=== PATIENT | female | born 1965 | race Caucasian/White ===

== ENCOUNTER 2024-11-03 09:42 | Emergency (ER) | payer MEDICARE ==
[~2024-11-03] VITALS: Ht 165.1 cm; Wt 72.6 kg
[2024-11-03] MEDS: LACTATED RINGERS 1000ML 1,000 ML IV ONE (10:07)
[2024-11-03] MEDS: ondanSETRON 4MG INJ IVP ONE (10:07)
[2024-11-03] MEDS: PANTOPrazole 40 MG/VIAL IVP ONE (10:07)
[2024-11-03 10:31] LABS: BASOPHILS # (AUTO) 0.05 K/uL (0.00-0.20); BASOPHILS % (AUTO) 1.5 % (0.0-5.0); EOSINOPHILS % (AUTO) 5.9 % (0.0-8.0); HEMATOCRIT 41.2 % (36-48); IMMATURE GRANULOCYTE ABSOLUTE 0.01 K/uL (0-1); LYMPHOCYTES # (AUTO) 0.5 K/uL (1.0-4.8); LYMPHOCYTES % (AUTO) 13.3 % (21.0-51.0); MEAN CORPUSCULAR HEMOGLOBIN 32.1 pg (27.0-33.0); MEAN CORPUSCULAR HGB CONC 34.2 g/dL (32.0-36.0); MEAN CORPUSCULAR VOLUME 93.8 fL (79-99); MONOCYTES # (AUTO) 0.4 K/uL (0.1-1.0); MONOCYTES % (AUTO) 10.3 % (3.0-13.0); NEUTROPHILS # (AUTO) 2.3 K/uL (1.8-7.7); NEUTROPHILS % (AUTO) 68.7 % (40.0-77.0); PLATELET COUNT (AUTO) 185 K/uL (130-400); RED BLOOD CELL COUNT(AUTO) 4.39 MIL/uL (4.00-5.50); RED CELL DISTRIBUTION WIDTH 12.1 % (11.0-15.5); WHITE BLOOD COUNT (AUTO) 3.4 K/uL (4.8-10.8)
[2024-11-03 10:36] LABS: APPEARANCE,URINE CLEAR (CLEAR); BILIRUBIN,URINE NEGATIVE (NEGATIVE); COLOR,URINE LIGHT-YELLOW (YELLOW); GLUCOSE, URINE (UA) NEGATIVE (NEGATIVE); KETONES,URINE NEGATIVE (NEGATIVE); LEUKOCYTE ESTERASE ,URINE 75 Leu/uL (NEGATIVE); NITRATE,URINE NEGATIVE (NEGATIVE); OCCULT BLOOD,URINE NEGATIVE (NEGATIVE); PROTEIN,URINE NEGATIVE (NEGATIVE); UROBILINOGEN,URINE 0.2 mg/dL (0.2-1.0)
[2024-11-03 10:44] LABS: CREATININE 0.9 mg/dL (0.5-1.0)
[2024-11-03 10:45] LABS: ADD UA MICROSCOPIC YES
[2024-11-03 10:46] LABS: ALBUMIN 3.9 g/dL (3.5-5.0); BILIRUBIN,TOTAL 0.3 mg/dL (0.2-1.0); TOTAL PROTEIN, SERUM 7.3 g/dL (6.0-8.3)
[2024-11-03 10:47] LABS: RBC,URINE 0-1 /HPF (0-1); SQUAMOUS EPITHELIAL CELL,UR RARE /HPF (0-2)
--- NOTE | 2024-11-03 13:27 | EKG ---
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
[2024-11-03] MEDS: cefTRIAXone 1G VIAL 1 GM ONE (13:33)
[2024-11-03] MEDS ORDERED: HYDR25SU52 RC (13:35)
--- NOTE | 2024-11-03 13:35 | ERN ---
General Chief Complaint: Gi Problem Stated Complaint: RECTAL BLEEDING Time Seen by MD: 09:45 Source: patient History of Present Illness Initial Comments This is a 59-year-old female coming in with multiple complaints. Patient states that she has been feeling dysuria some discomfort when she urinates as well as some rectal discomfort. She states that she ate some ice cream yesterday and believes it is upset her stomach. She was concerned because she saw blood in her stools decided to come in for further evaluation. Allergies: Coded Allergies: No Known Drug Allergies (Unverified Allergy, Unknown, 11/03/24) Past Medical History Past Medical History: Cancer, Other Medical History Other: LEFT LUNG STAGE 3B CA, SKIN CA Past Surgical History: Hysterectomy, ROS Dictation CONSTITUTIONAL: No chills, no fever, no weakness, no diaphoresis, no malaise. HEAD/FACE: No signs of trauma. EENT: No eye pain, no blurred vision, no tearing, no double vision, no ear pain, no ear discharge, no nose pain, no nasal congestion, no throat pain, no throat swelling, no mouth pain. RESPIRATORY: No cough, no orthopnea, no SOB, no stridor, no wheezing. CARDIOVASCULAR: No chest pain, no edema, no palpitations, no syncope. GASTROINTESTINAL/ABDOMINAL: No abdominal pain, no constipation, no diarrhea, no nausea, no vomiting. GENITOURINARY: No abnormal discharge, dysuria, no frequent urination, no hematuria. No complaints of pain in the genitals. MUSCULOSKELETAL: No back pain, no gout, no joint pain, no joint swelling, no muscle pain, no muscle stiffness, no neck pain. INTEGUMENTARY: No change in color, no change in hair/nails, no dryness, no lesion, no lumps, no rash. NEUROLOGICAL/PSYCH: No anxiety, not depressed, no emotional problem, no headache, no numbness, no pre-existing deficit, no history of seizures, no tremors, no weakness. HEMATOLOGIC/LYMPHATIC: Not anemic, no history of blood clots, no apparent bleeding, no bruising, glands not swollen. All Systems Negative, Except as Noted. Physical Exam Physical Exam Dictation VITAL SIGNS: Reviewed. GENERAL APPEARANCE: Alert, oriented x3, no acute distress, obese. HEAD AND FACE: Non-traumatic. EYES: PERRL, pink conjunctivas, eyelid no trauma, anterior chamber clear. EARS: Pinnas intact and no signs of trauma or erythema. Ear canals clear and no discharge. TMs no erythema. NOSE: No discharge, no bleeding. OROPHARYNX: Mouth normal, teeth no caries, tongue pink. Pharynx clear, no erythema. Tonsils no exudates, no abscesses noted. Mucous membrane moist. NECK: Supple, non-tender, no thyromegaly, no masses, no JVD, no bruits. BREAST: Deferred. CHEST: No tenderness, no crepitus, no paradoxical movement, no retractions. LUNGS: Clear, well-ventilated, symmetric, no rales, no wheezing, no rhonchi, no stridor, good breath sounds bilaterally. HEART: Regular rate, regular rhythm, no murmur, no gallops. VASCULAR: No peripheral edema. ABDOMEN: Soft, positive bowel sounds, nondistended, no guarding, nontender, no r ebound, no masses no hepatomegaly, no splenomegaly, no Bernal's sign, no hernias. RECTAL: Small external hemorrhoids noticed, chaperoned by nurse Kelli mild internal hemorrhoids noticed at the 6:00 a.m. region GENITAL: Deferred. NEUROLOGICAL: Normal speech, gross motor function intact, gross sensory function intact. MUSCULOSKELETAL: Neck nontender, full range of motion, back nontender, full range of motion. EXTREMITIES: Nontender, full range of motion. SKIN: Color pink, dry, no turgor, no rash, no lacerations, no abrasions, no contusions. LYMPHATICS: Deferred. Results Laboratory and Microbiology Lab and Micro Result Laboratory Tests Test 11/03/24 10:00 11/03/24 10:20 Urine Color LIGHT-YELLOW (YELLOW) Urine Appearance CLEAR (CLEAR) Urine pH 6.0 (5.0-8.0) Urine Specific Wilbur 1.017 (1.001-1.031) Urine Protein NEGATIVE mg/dL (NEGATIVE) Urine Glucose (UA) NEGATIVE mg/dL (NEGATIVE) Urine Ketones NEGATIVE mg/dL (NEGATIVE) Urine Occult Blood NEGATIVE (NEGATIVE) Urine Nitrate NEGATIVE (NEGATIVE) Urine Bilirubin NEGATIVE mg/dL (NEGATIVE) Urine Urobilinogen 0.2 mg/dL (0.2-1.0) Urine Leukocyte Esterase 75 Phillip/uL (NEGATIVE) H Urine RBC 0-1 /HPF (0-1) Urine WBC 2-5 /HPF (0-1) H Urine Squamous Epithelial Cells RARE /HPF (0-2) Urine Bacteria None /HPF (None Seen) White Blood Count 3.4 K/uL (4.8-10.8) L Red Blood Count 4.39 MIL/uL (4.00-5.50) Hemoglobin 14.1 g/dL (12.0-16.0) Hematocrit 41.2 % (36-48) Mean Corpuscular Volume 93.8 fL (79-99) Mean Corpuscular Hemoglobin 32.1 pg (27.0-33.0) Mean Corpuscular Hemoglobin Concent 34.2 g/dL (32.0-36.0) Red Cell Distribution Width 12.1 % (11.0-15.5) Platelet Count 185 K/uL (130-400) Mean Platelet Volume 9.9 fL (7.5-10.5) Immature Granulocyte % (Auto) 0.3 % (0-1) Neutrophils (%) (Auto) 68.7 % (40.0-77.0) Lymphocytes (%) (Auto) 13.3 % (21.0-51.0) L Monocytes (%) (Auto) 10.3 % (3.0-13.0) Eosinophils (%) (Auto) 5.9 % (0.0-8.0) Basophils (%) (Auto) 1.5 % (0.0-5.0) Neutrophils # (Auto) 2.3 K/uL (1.8-7.7) Lymphocytes # (Auto) 0.5 K/uL (1.0-4.8) L Monocytes # (Auto) 0.4 K/uL (0.1-1.0) Eosinophils # (Auto) 0.20 K/uL (0.00-0.70) Basophils # (Auto) 0.05 K/uL (0.00-0.20) Absolute Immature Granulocyte (auto 0.01 K/uL (0-1) Nucleated Red Blood Cells 0.0 % (0.0-0.19) Sodium Level 142 mmol/L (136-145) Potassium Level 4.0 mmol/L (3.5-5.1) Chloride Level 106 mmol/L (101-111) Carbon Dioxide Level 25 mmol/L (21-32) Blood Urea Nitrogen 24 mg/dL (7-18) H Creatinine 0.9 mg/dL (0.5-1.0) Glomerular Filtration Rate Calc 73 mL/min (>90) Random Glucose 91 mg/dL (70-105) Total Calcium 9.0 mg/dL (8.5-10.1) Total Bilirubin 0.3 mg/dL (0.2-1.0) Aspartate Amino Transf (AST/SGOT) 29 U/L (10-37) Alanine Aminotransferase (ALT/SGPT) 33 U/L (12-78) Alkaline Phosphatase 69 U/L (50-136) Total Protein 7.3 g/dL (6.0-8.3) Albumin 3.9 g/dL (3.5-5.0) Lipase 42 U/L (16-77) Labs Reviewed?: Yes MDM MDM: Differential diagnosis: Constipation, UTI, hemorrhoids, external hemorrhoids, GI bleed, Rationale: Tests considered and ordered secondary to shared decision making include: Previous outside records reviewed: Old ER visits. Risk of complication and/or morbidity or mortality of patient management: None Medications-Per medication reconciliation Patient is a 59-year-old female coming in to be evaluated for multiple complaints. Dysuria was evaluated urinary tract infection was found GI bleed was evaluated and external and internal hemorrhoids were noticed. Patient will be discharged in stable condition with a diagnosis of UTI with hemorrhoids. Patient will be referred to GI doctor for ongoing evaluation and management. Throughout ER visit patient has been stable. ED Course Orders Procedure Category Date Status Time Cbc With Differential LAB 11/03/24 Complete 09:50 Comprehensive LAB 11/03/24 Complete Metabolic Panel 09:50 Urinalysis Profile LAB 11/03/24 Complete 09:50 Occult Blood Stool LAB 11/03/24 Logged Single Only 09:50 12 Lead Ekg Tracing- EKG 11/03/24 Complete Technical 09:50 Lactated Ringers PHA 11/03/24 Complete 1000ml (Lactated 10:00 Ondansetron 4mg Inj PHA 11/03/24 Complete (Zofran 4mg Inj) 10:00 Pantoprazole 40mg Inj PHA 11/03/24 Complete (Protonix 40mg Inj 10:00 Lipase LAB 11/03/24 Complete 09:50 Culture Urine VALERIE 11/03/24 In Process 10:45 Current Medications Medications (Trade) Dose Ordered Sig/Kareem Route PRN Reason Start Time Stop Time Status Last Admin Dose Admin Lactated Ringer's 1,000 ml @ 0 mls/hr ONCE ONCE IV 11/03/24 10:00 11/03/24 10:01 DC 11/03/24 10:07 Ondansetron HCl (zoFRAN 4MG INJ) 4 mg ONCE ONCE IVP 11/03/24 10:00 11/03/24 10:01 DC 11/03/24 10:07 Pantoprazole Sodium (PROTonix 40MG INJ) 40 mg ONCE ONCE IVP 11/03/24 10:00 11/03/24 10:01 DC 11/03/24 10:07 Vital Signs Date Time Temp Pulse Resp B/P (MAP) Pulse Ox O2 Delivery O2 Flow Rate FiO2 11/03/24 09:50 98.1 80 16 133/73 98 Room Air* 0 21 11/03/24 09:43 98.8 67 20 152/103 97 Room Air 0 DX & DISP Disposition: Discharge Departure Impression: Primary Impression: UTI (urinary tract infection) Additional Impression: Hemorrhoids Condition: Stable Scripts Hydrocortisone Acetate (Hemmorex-Hc) 25 Mg Supp.rect 25 MG RC DAILY for 7 Days, #7 EA Prov: MIKE GOLDBERG MD 11/03/24 Additional Instructions: FOLLOW-UP WITH PRIMARY CARE PROVIDER IN 1 TO 2 DAYS. TAKE MEDICATIONS DIRECTED HERE IN THE EMERGENCY ROOM. OKAY TO CONTINUE HOME MEDICATIONS UNLESS OTHERWISE DISCUSSED DURING YOUR VISIT IN THE EMERGENCY ROOM TODAY. RETURN TO YOUR NEAREST EMERGENCY ROOM IF SYMPTOMS WORSEN OR IF THERE IS NO IMPROVEMENT. CALL 911 IF YOU NEED IMMEDIATE ASSISTANCE. TAKE TYLENOL [id number] NEEDED AND IF NO CONTRAINDICATIONS ARE PRESENT. INCREASE ORAL HYDRATION. A WOUND CULTURE OR URINE CULTURE WAS ORDERED HERE IN THE EMERGENCY ROOM DEPARTMENT PLEASE FOLLOW-UP WITH PRIMARY CARE PROVIDER AND ADVISE THEM TO GET REPEAT PORTS FROM OUR FACILITY. IF YOU HAD ANY INGRID WRAP/SPLINTS THAT WERE APPLIED HERE, PLEASE DO NOT REMOVE THEM UNTIL YOU SEE YOUR PRIMARY CARE OR SPECIALTY. Referrals: Referrals: SELF,REFERRAL (PCP) GRZEGORZ NDIAYE MD, LUIS A MD Time of Disposition: 13:34 MIKE GOLDBERG MD November 03, 2024 13:35
[2024-11-03] MEDS: cefTRIAXone 1G VIAL IVPB ONE (13:38)
[2024-11-03 14:00] VITALS: BP 130/70; PULSE 70; RESP 16; TEMP 98; O2SAT 97
== END 2024-11-03 14:00 | disposition home or self-care (01) ==
LOC: EDH 09:42
DX: N39.0 Urinary tract infection, site not specified (principal); K64.9 Unspecified hemorrhoids; Z90.710 Acquired absence of both cervix and uterus
CPT/HCPCS: 99284; 96365; 96375; 96361; 80053; 83690; 85025; 87086; 81001; 36415; 93005; J7120; J0696; J2405; J2470